=== PATIENT | female | born 1955 | race Caucasian/White ===

== ENCOUNTER 2021-12-10 10:30 | Emergency (ER) | payer OTHER ==
[2021-12-10 10:38] VITALS: BMI 29.6
[2021-12-10 11:27] LABS: INR 1.05 (0.83-1.09); PROTHROMBIN TIME (PATIENT) 12.1 SEC (9.7-13.0)
[2021-12-10 11:30] LABS: ACTIVATED PTT 32.8 SECONDS (25.2-36.5)
[2021-12-10 11:35] LABS: ALBUMIN 4.2 g/dl (3.4-5.0); BILIRUBIN,TOTAL 1.5 mg/dl (0.2-1); CALCIUM 9.6 mg/dl (8.5-10); CREATININE 0.8 mg/dl (0.55-1.3); TOT PROT 7.1 g/dl (6.4-8.2)
[2021-12-10 11:56] LABS: BASO % 0.7 % (0-2.0); HEMATOCRIT 55.3 % (32.4-45.2); LYMPH % 8.4 % (8-40); MCHC 34.3 g/dl (32.0-36.0); MEAN CELL VOLUME 93.2 fl (80-96); MEAN PLT VOLUME 8.2 fl (7.5-11.1); MONO % 6.6 % (3.8-10.2); NEUT % 82.3 % (42.8-82.8); PLATELET COUNT 211 10^3/uL (134-434); RBC 5.94 M/mm3 (3.60-5.2); RDW 14.6 % (11.6-15.6); WHITE BLOOD COUNT 8.5 K/mm3 (4.0-10.0)
[2021-12-10] MEDS ORDERED: HEPARIN NA (PORCINE) 5,000 UNITS/ML 1ML VIAL IVPUSH PRN ×2 (12:49)
[2021-12-10] MEDS ORDERED: HEPARIN NA (PORCINE) 5,000 UNITS/ML 1ML VIAL IVPUSH ONE (12:49)
[2021-12-10] MEDS ORDERED: HEPARIN INFUSION - 25,000 UNITS/500 ML INFUS.BAG IVPB ONE (12:52)
[2021-12-10] MEDS ORDERED: HEPARIN NA (PORCINE) 5,000 UNITS/ML 1ML VIAL ONE (12:54)
[2021-12-10] MEDS ORDERED: HEPARIN INFUSION - 25,000 UNITS/500 ML INFUS.BAG IVPB SCH (13:00)
[2021-12-10 16:22] VITALS: BP 142/78; PULSE 84; TEMP 97.8
== END 2021-12-10 16:00 | disposition short-term general hospital (02) ==
LOC: FER 10:30
PROC: 3E033GC Introduction of Other Therapeutic Substance into Peripheral Vein, Percutaneous Approach (ICD-10-PCS; principal; 2021-12-10)
DX: I82.412 Acute embolism and thrombosis of left femoral vein (principal)
CPT/HCPCS: 36415; 80053; 85025; 85610; 85730; 93005; 93971-TC; 96365; 96366; 96375; 99285-25; C9803-CS; J1644; U0003; U0005